=== PATIENT | female | born 1960 ===

== ENCOUNTER 2024-03-09 09:44 | Outpatient (RCR) | payer BC, SELFPAY ==
[2024-03-09 10:00] VITALS: BP 137/94
[2024-03-09] MEDS: RECLAST 100 IV (10:10)
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
== END 2024-03-10 11:37 | disposition home or self-care (01) ==
LOC: OID 09:44
PROVIDERS: ATTENDING PHYSICIAN Nurse Practitioner Family; FAMILY PHYSICIAN Physician Assistant
DX: M81.0 Age-related osteoporosis without current pathological fracture (principal)
CPT/HCPCS: 96365; J3489